=== PATIENT | male | born 2000 | race African-American/Black ===

== ENCOUNTER 2024-05-09 10:28 | Emergency (ER) | payer MEDICAID ==
[~2024-05-09] VITALS: Ht 172.7 cm; Wt 77.0 kg
[2024-05-09 10:35] VITALS: PULSE 61; RESP 13; O2SAT 100
[2024-05-09] MEDS: FAMOTIDINE (10MG/ML) 2ML VL IV ONE (10:53)
[2024-05-09] MEDS: DexAMETHasone SOD PHOS 10MG/1ML VIAL INJ IV ONE (10:54)
[2024-05-09] MEDS: SODIUM CHLORIDE 0.9% 2,000 ML IV ONE (10:55)
[2024-05-09] MEDS: diphenhdrAMINE HCL 50 MG/1 ML VL IV ONE (10:55)
[2024-05-09 11:59] LABS: Basophils # (auto) 0 10 ^3/uL (0-0.2); Basophils % (auto) 0.1 % (0.0-2.0); Eosinophils # (auto) 0.1 10 ^3/uL (0-0.8); Eosinophils % (auto) 0.9 % (0.0-7.0); Hematocrit 45.9 % (41.0-53.0); Hemoglobin 15.5 g/dL (13.5-17.5); Lymphocytes # (auto) 1.4 10 ^3/uL (0.4-5.4); Lymphocytes % (auto) 18.5 % (10.0-50.0); Mean Corpuscular Hemoglobin 28.2 pg (28.0-32.0); Mean Corpuscular Hgb Conc. 33.8 g/dL (32.0-36.0); Mean Corpuscular Volume 83.6 fL (80.0-100.0); Monocytes # (auto) 0.4 10 ^3/uL (0-1.3); Monocytes % (auto) 5.6 % (0.0-12.0); Neutrophils # (auto) 5.6 10 ^3/uL (1.6-8.6); Neutrophils % (auto) 74.9 % (37.0-80.0); Platelet Count (auto) 208 10^3/uL (140-450); Red Blood Cells 5.49 10^6/uL (4.5-5.90); Red Cell Distribution Width 13.3 % (11.8-14.3); White Blood Cell 7.5 10^3/uL (4.4-10.8)
[2024-05-09 12:05] LABS: Chloride 108 mmol/L (98-107); Potassium 3.4 mmol/L (3.5-5.1); Sodium 141 mmol/L (136-145)
[2024-05-09 12:06] LABS: Anion Gap 6 (5-15); Calcium 9.2 mg/dL (8.7-10.4); Carbon Dioxide 27 mmol/L (20-31)
[2024-05-09 12:11] LABS: BUN/Creatinine Ratio 6.7 (10.0-20.0); Blood Urea Nitrogen 6 mg/dL (9-23); Glucose 79 mg/dL (74-106)
[2024-05-09] MEDS ORDERED: DIPH25TA31 PO (12:36)
[2024-05-09] MEDS ORDERED: ALBU108A5 IN (12:36)
[2024-05-09] MEDS ORDERED: PRED20TA2 PO (12:36)
[2024-05-09] MEDS ORDERED: FAMO-161 PO (12:36)
[2024-05-09] MEDS: POTASSIUM CHL 20 Meq TABLET PO ONE (12:48)
[2024-05-09 13:00] VITALS: BP 120/59; PULSE 71; RESP 16; O2SAT 99
== END 2024-05-09 13:19 | disposition home or self-care (01) ==
LOC: ER 10:28 → EDBD 10:28 → ER 13:19
DX: T78.40XA Allergy, unspecified, initial encounter (principal); Z79.52 Long term (current) use of systemic steroids; Z88.6 Allergy status to analgesic agent
CPT/HCPCS: 36415; 80048; 85025; 96361; 96374; 96375; 99284; J1100; J1200; J3490; J7030